=== PATIENT | male | born 1970 | race Caucasian/White ===

== ENCOUNTER 2016-03-14 18:12 | Emergency (ER) | payer OTHER ==
[~2016-03-14] VITALS: Ht 182.9 cm; Wt 79.4 kg
[~2016-03-14 18:12] MED LIST: LORT5TAB PO; TAMS0.4C67 PO; Z.0.NO CURRENT MEDS
[2016-03-14 18:17] VITALS: BP 103/75; PULSE 77; RESP 17; TEMP 98.1; O2SAT 97
[2016-03-14 18:37] LABS: BLOOD, URINE NEG (NEG); GLUCOSE,URINE NEG (NEG); KETONE, URINE TRACE mg/dL (NEG); NITRITE,URINE NEG (NEG); PH, URINE 5.5 (5.0-8.5)
[2016-03-14 18:41] LABS: URINE COLOR YELLOW (YELLW/STRAW)
[2016-03-14 18:42] LABS: COMMENT (UR) CULT NOT INDICATED; CULTURE IF INDICATED CULT NOT INDICATED; RBC, URINE 0-2 /hpf (0-3); SQUAMOUS EPITHELIAL CELL URINE 0-5 /hpf (0-5); WBC, URINE 0-2 /hpf (0-5)
--- NOTE | 2016-03-14 18:49 | PD ---
HPI . Suprapubic pressure Chief Complaint: Complaint Time Seen by Provider: 18:31 Travel History International Travel<30 days: No Contact w/Intl Traveler<30days: No Traveled to known affect area: No History of Present Illness HPI Patient presents complaining of suprapubic pressure and urinary hesitancy which started about 5 days ago. He states that his urine appears dark. He reports a decreased amount of urine. He states that he has had an associated headache, diarrhea, low back pain and impotence. Those symptoms have not been persistent the entire 5 days. He denies fever or myalgias. He does complain of bilateral testicular pain, left greater than right. PFSH Past Medical History Diminished Hearing: No Kidney Stones: Yes Tetanus Vaccination: Unknown Influenza Vaccination: No Past Surgical History Surgical History: No Previous Surgery Social History Alcohol Use: Yes (SOCIALLY) Tobacco Use: Yes (1 CIGAR A MONTH) Substance Use: No Allergies-Medications (Allergen,Severity, Reaction): Coded Allergies: No Known Allergies (Verified , 03/14/16) Reported Meds & Prescriptions Reported Meds & Active Scripts Active No Active Prescriptions or Reported Medications Review of Systems Except as stated in HPI: all other systems reviewed are Neg General / Constitutional: No: Fever, Chills HENT: Positive: Headaches Gastrointestinal: Positive: Diarrhea Genitourinary: Positive: Decreased Urinary Output, Hesitancy, Pelvic Pain, Flank Pain, Other (amplitudes) Physical Exam Narrative GENERAL: Healthy-appearing 45-year-old man in no acute distress. SKIN: Warm and dry. HEAD: Atraumatic. Normocephalic. EYES: Pupils equal and round. ENT: No nasal bleeding or discharge. Mucous membranes pink and moist. NECK: Trachea midline. CARDIOVASCULAR: Regular rate and rhythm. RESPIRATORY: No accessory muscle use. GASTROINTESTINAL: Abdomen soft. Mild suprapubic tenderness. Nondistended. : Normal circumcised male. No urethral discharge. No testicular tenderness or swelling. No tenderness or swelling of the epididymis. MUSCULOSKELETAL: No obvious deformities. No edema. NEUROLOGICAL: Awake and alert. No obvious cranial nerve deficits. Motor grossly within normal limits. Normal speech. PSYCHIATRIC: Appropriate mood and affect; insight and judgment normal. Data Data Last Documented VS Vital Signs Date Time Temp Pulse Resp B/P Pulse Ox O2 Delivery O2 Flow Rate FiO2 03/14/16 18:26 77 16 03/14/16 18:17 98.1 103/75 97 Orders Urinalysis - C+S If Indicated (03/14/16 18:30) Bladder Scan PRN (03/14/16 18:32) Us Testicles W Doppler (03/14/16 18:37) Ct Abd/Pel W/O Iv Contrast (03/14/16 18:49) Labs Laboratory Tests Test 03/14/16 18:20 Urine Color YELLOW Urine Turbidity CLEAR Urine pH 5.5 Urine Specific [place] 1.028 Urine Protein NEG mg/dL Urine Glucose (UA) NEG mg/dL Urine Ketones TRACE mg/dL Urine Occult Blood NEG Urine Nitrite NEG Urine Bilirubin NEG Urine Leukocyte Esterase NEG Urine RBC 0-2 /hpf Urine WBC 0-2 /hpf Urine Squamous Epithelial 0-5 /hpf Cells Urine Bacteria NONE /hpf Microscopic Urinalysis Comment CULT NOT INDICATED MDM Medical Decision Making Medical Screen Exam Complete: Yes Emergency Medical Condition: Yes Differential Diagnosis Differential diagnosis includes but is not limited to UTI, STD, acute urinary retention, epididymo orchitis, testicular torsion, prostatitis, BPH. Narrative Course Patient presents for evaluation of suprapubic pressure and urinary hesitancy. His UA and no evidence of infection. It is concentrated and he has ketones. Bladder scan showed a residual of [address] is negative. Ultrasound is basically normal. He just has varicoceles. This patient is medically clear for evaluation as an outpatient. Diagnosis Primary Impression: Urinary hesitancy Patient Instructions: General Instructions Additional Instructions: Try Flomax. Follow up with your primary care physician if symptoms persist. Scripts Tamsulosin (Flomax)0.4 Mg Cap0.4 Mg PO HS #30 CAP Ref 0 Prov:Anna Leigh MD 03/14/16 Disposition: 01 DISCHARGE HOME Condition: Stable Anna Leigh MD Mar 14, 2016 18:49
--- NOTE | 2016-03-14 19:46 | RADHPO ---
EXAM DATE/TIME: 03/14/2016 19:10 [facility] COMPARISON: No previous studies available for comparison. INDICATIONS : Bilateral testicular and suprapubic pain for five days. ORAL CONTRAST: No oral contrast ingested. RADIATION DOSE: 7.81 CTDIvol (mGy) MEDICAL HISTORY : Renal calculi. SURGICAL HISTORY : None. ENCOUNTER: Initial ACUITY: 1 day PAIN SCALE: 3/10 LOCATION: Bilateral lower quadrant TECHNIQUE: Volumetric scanning of the abdomen and pelvis was performed. Using automated exposure control and ad justment of the mA and/or kV according to patient size, radiation dose was kept as low as reasonably achievable to obtain optimal diagnostic quality images. FINDINGS: LOWER LUNGS: The visualized lower lungs are clear. LIVER: Homogeneous density without lesion. There is no dilation of the biliary tree. No calcified gallston es. SPLEEN: Normal size without lesion. PANCREAS: Within normal limits. KIDNEYS: Normal in size and shape. There is no mass, stone, or hydronephrosis. ADRENAL GLANDS: Within normal limits. VASCULAR: There is no aortic aneurysm. BOWEL/MESENTERY: The stomach, small bowel, and colon demonstrate no acute abnormality. There is no free intraperitone al air or fluid. ABDOMINAL WALL: Within normal limits. RETROPERITONEUM: There is no lymphadenopathy. BLADDER: No wall thickening or mass. REPRODUCTIVE: Within normal limits. INGUINAL: There is no lymphadenopathy or hernia. MUSCULOSKELETAL: Within normal limits for patient age. CONCLUSION: Negative noncontrast CT abdomen/pelvis. Stu Tomas MD on March 14, 2016 at 19:43 Board Certified Radiologist. This report was verified electronically.
--- NOTE | 2016-03-14 20:29 | RADHPO ---
EXAM DATE/TIME: 03/14/2016 19:54 [facility] COMPARISON: No previous studies available for comparison. INDICATIONS : Bilateral testicle swelling and pain. MEDICAL HISTORY : Renal calculi. SURGICAL HISTORY : None. ENCOUNTER: Initial ACUITY: 4 - 6 days PAIN SCORE: 3/10 LOCATION: Bilateral scrotum. MEASUREMENTS: RIGHT TESTICLE: 3.7 x 3.2 x 1.7cm LEFT TESTICLE: 3.2 x 1.9 x 3.3cm FINDINGS: RIGHT TESTICLE: Homogeneous echotexture without intra or extratesticular mass. Blood flow is symmetric and within no rmal limits. No hydrocele. Epididymis is within normal limits. Small varicocele. LEFT TESTICLE: Homogeneous echotexture without intra or extratesticular mass. Blood flow is symmetric and within no rmal limits. No hydrocele. Epididymis is within normal limits. There is a large varicocele with si gnificant increase in flow with Valsalva SCROTUM: Within normal limits. CONCLUSION: 1. Intact flow and homogeneous echotexture to both testicles. 2. Large left varicocele and small right varicocele. Stu Tomas MD on March 14, 2016 at 20:26 Board Certified Radiologist. This report was verified electronically.
[2016-03-14] MEDS ORDERED: TAMS5CAP PO (20:34)
[2016-03-14 20:56] VITALS: BP 125/76; PULSE 65; RESP 17; O2SAT 97
== END 2016-03-14 20:57 | disposition home or self-care (01) ==
LOC: PHED 18:12
DX: R39.11 Hesitancy of micturition (principal); R51 Headache; M54.5 Low back pain; N50.812 Left testicular pain; N50.811 Right testicular pain
CPT/HCPCS: 74176; 76870; 81001; 93975